=== PATIENT | female | born 1975 | race Caucasian/White ===

== ENCOUNTER 2016-11-27 12:04 | Emergency (ER) | payer SELFPAY ==
[2016-11-27 12:21] VITALS: BP 130/83
--- NOTE | 2016-11-27 13:08 | UC ---
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 has been putting lots of strain on her hands was seen at ED was place on prednisone , she is concern about CTS - History Of Current Complaint Chief Complaint: UCUpperExtremity Stated Complaint: BILATERAL WRIST INJURY (WC) Time Seen by Provider: 11/27/16 12:09 Hx Obtained From: Patient Hx Last Menstrual Period: 11/19/16 Onset/Duration: Gradual Onset, Lasting Days - 4, Still Present Severity Initially: Moderate Severity Currently: Moderate Character Of Pain: Aching, Stiffness - of both hands Aggravating Factor(s): Movement Alleviating: Nothing Associated Signs And Symptoms: Positive: Swelling - both hands and both feet, Weakness, Numbness/Tingling - both hands - Allergies/Home Medications Allergies/Adverse Reactions: Allergies Allergy/AdvReac Type Severity Reaction Status Date / Time No Known Allergies Allergy Verified 11/27/16 12:21 Home Medications: Home Medications Loratadine [Claritin 10 MG CAP] 1 tab PO DAILY 11/27/16 [History Confirmed 11/27] PMH/Surg Hx/FS Hx/Imm Hx Previously Healthy: Yes - Surgical History Surgical History: None - Family History Known Family History: Negative: Diabetes - Social History Alcohol Use: Rare Substance Use Type: None Smoking Status (MU): Never Smoked Tobacco Review of Systems Constitutional: Negative Skin: Negative Eyes: Negative ENT: Negative Respiratory: Negative Musculoskeletal: Other: - bilateral hands pain and swelling All Other Systems Reviewed And Are Negative: Yes Physical Exam Triage Information Reviewed: Yes Appearance: Well-Appearing, No Pain Distress, Well-Nourished Vital Signs: Initial Vital Signs Temp 97.5 F 11/27/16 12:14 Pulse 60 11/27/16 12:14 Resp 14 11/27/16 12:14 BP 130/83 11/27/16 12:14 Pulse Ox 97 11/27/16 12:14 Vital Signs Reviewed: Yes Eyes: Positive: Conjunctiva Clear ENT: Positive: Normal ENT inspection, Hearing grossly normal, Pharynx normal Neck: Positive: Supple, Nontender, No Lymphadenopathy Respiratory: Positive: Chest non-tender, Lungs clear, Normal breath sounds Cardiovascular: Positive: RRR, No Murmur, Pulses Normal Abdominal Exam: Normal Musculoskeletal: Positive: Other: - edema bilateral hands, decrease rom , no tenderness, decrease strength Hand/Wrist Course/Dx - Differential Dx/Diagnosis Provider Diagnoses: parasthesia hands. peripheral edema Discharge - Discharge Plan Condition: Stable Disposition: HOME Prescriptions: HYDROcodone/ACETAMIN 5-325 MG* [[place] 5-325 TAB*] 1 tab PO Q6H PRN #15 tab MDD 4 PRN Reason: Pain Patient Education Materials: Edema (ED) Referrals: No Primary Care Phys,NOPCP [Primary Care Provider] - 7 Days Additional Instructions: edema of upper and lower ext. causing the numbness of the hands cont. with rest , ice, cont. with prednisone , will check cbc, cmp , tsh , call the office tomorrow for the results if all the blood work is normal, you should cont. with rest , antiinflammatories and your sx will improve as soon the swelling is gone
[2016-11-27 18:55] LABS: Hematocrit 35 % (35-47); Hemoglobin 11.6 g/dl (12.0-16.0); Mean Corpuscular HGB Conc 33 g/dl (31-36); Mean Corpuscular Hemoglobin 29 pg (27-31); Mean Corpuscular Volume 87 fL (80-97); Mean Platelet Volume 9 um3 (7.4-10.4); Red Blood Count 3.99 10^6/ul (4.0-5.4); Red Cell Distribution Width 13 % (10.5-15); White Blood Count 9.1 10^3/ul (3.5-10.8)
[2016-11-27 19:17] LABS: TSH (Thyroid Stimulating Horm) 0.49 mcIU/mL (0.34-5.60)
[2016-11-27 20:01] LABS: Albumin 3.8 g/dL (3.2-5.2); Calcium 8.9 mg/dL (8.6-10.3); EGFR African American 132.2 (>60); EGFR Non-African American 102.8 (>60); Globulin 2.6 g/dL (2-4); Potassium 4.1 mmol/L (3.5-5.0); Total Bilirubin 0.4 mg/dL (0.2-1.0); Total Protein 6.4 g/dL (6.4-8.9)
== END 2016-11-27 13:10 | disposition home or self-care (01) ==
LOC: UCCORT 12:04
DX: R20.2 Paresthesia of skin (principal); R60.0 Localized edema
CPT/HCPCS: 36415; 80053; 84443; 85027; 99211; G0463

== ENCOUNTER 2016-12-03 16:01 | Emergency (ER) | payer SELFPAY ==
[2016-12-03 16:11] VITALS: BP 134/76
--- NOTE | 2016-12-03 16:24 | UC ---
Hand/Wrist HPI - HPI Summary HPI Summary: complaint of wrist pain that started approx 8 days ago went to ED last saturday- given prednisone for carpal tunnel syndrome seen here on 11/27/16- swelling in her hands has subsided in the last 2-3 days still has 3-4 days of prednisone left constant aching pain when using her hands she gets a shooting pain into her shoulders fingers feel numb at times wearing wrist support at night with relief denies neck and back pain - History Of Current Complaint Chief Complaint: UCUpperExtremity Stated Complaint: RE-CH BILAT WRIST (WC) Time Seen by Provider: 12/03/16 16:15 Hx Obtained From: Patient Hx Last Menstrual Period: 11/19/16 - Allergies/Home Medications Allergies/Adverse Reactions: Allergies Allergy/AdvReac Type Severity Reaction Status Date / Time No Known Allergies Allergy Verified 12/03/16 16:11 Home Medications: Home Medications Acetaminophen [Acetaminophen Extra Stren] 1,000 mg PO Q4H PRN 12/03/16 [History Confirmed 12/03/16] PMH/Surg Hx/FS Hx/Imm Hx Previously Healthy: Yes - Surgical History Surgical History: None - Family History Known Family History: Negative: Cardiac Disease, Hypertension, Diabetes - Social History Occupation: Employed Full-time Lives: With Family Alcohol Use: Rare Substance Use Type: None Smoking Status (MU): Never Smoked Tobacco Review of Systems Constitutional: Negative Skin: Negative Eyes: Negative ENT: Negative Respiratory: Negative Cardiovascular: Negative Gastrointestinal: Negative Genitourinary: Negative Motor: Negative Neurovascular: Negative Musculoskeletal: Other: - bilateral wrist pain Neurological: Weakness, Numbness Psychological: Negative All Other Systems Reviewed And Are Negative: Yes Physical Exam Triage Information Reviewed: Yes Appearance: No Pain Distress, Well-Nourished Vital Signs: Initial Vital Signs Temp 98.6 F 12/03/16 16:06 Pulse 90 12/03/16 16:06 Resp 16 12/03/16 16:06 BP 134/76 12/03/16 16:06 Pulse Ox 99 12/03/16 16:06 Vital Signs Reviewed: Yes Eyes: Positive: Conjunctiva Clear ENT: Positive: Pharynx normal, TMs normal Neck: Positive: No Lymphadenopathy Respiratory: Positive: Lungs clear, Normal breath sounds, No respiratory distress Cardiovascular: Positive: RRR, No Murmur Abdomen Description: Positive: Nontender, Soft Bowel Sounds: Positive: Present Musculoskeletal: Positive: No Edema, Other: - postive Tinel and Phalen's sign no edema in hands Neurological: Positive: Alert Psychological Exam: Normal Hand/Wrist Course/Dx - Course Course Of Treatment: exam completed. will send to ortho and PT for further evaluation and treatment. will return to PCP if edema returns - Differential Dx/Diagnosis Differential Diagnosis/HQI/PQRI: Carpal Tunnel Syndrome, Sprain, Strain, Tendonitis Provider Diagnoses: carpal tunnel syndrome Discharge - Discharge Plan Condition: Stable Disposition: HOME Prescriptions: HYDROcodone/ACETAMIN 5-325 MG* [[place] 5-325 TAB*] 1 tab PO Q4H PRN #12 tab MDD 6 PRN Reason: Pain Patient Education Materials: Tendinitis (ED) Referrals: Patrick Jensen PA [Primary Care Provider] - Ej Juarez MD [Medical Doctor] - Additional Instructions: continue prednisone as directed continue to use wrist splints, ice and rest please call hazardous material specialist and physical therapy for further evaluation If you have any swelling in your ankles please call your primary care provider for followup Please review your discharge instructions. If your symptoms do not improve please call your primary care provider or return to urgent care. Your blood pressure is pre-hypertensive reading. Please contact your primary care provider within 1 day -4 weeks for further evaluation
== END 2016-12-03 16:45 | disposition home or self-care (01) ==
LOC: UCCORT 16:01
DX: G56.03 Carpal tunnel syndrome, bilateral upper limbs (principal)
CPT/HCPCS: 99212; G0463

== ENCOUNTER 2017-04-25 11:30 | Day surgery (SDC) | payer OTHER ==
[~2017-04-25 11:30] MED LIST: Buffered Lidocaine 0.9% SYRIN* 5 ML/SYR SYRINGE INTRADERM ONE
[2017-04-25] MEDS ORDERED: Midazolam* 1 MG/ML 5 ML VIAL (5 MG) ONE (12:52)
[2017-04-25] MEDS ORDERED: fentaNYL* 50 MCG/ML 2 ML VIAL (100 MCG VIAL) ONE (12:52)
[2017-04-25] MEDS ORDERED: Bupivacaine 0.25% SDV* 30 ML ONE (14:19)
[2017-04-25] MEDS ORDERED: Propofol* 10 MG/ML 20 ML BTL IV PUSH ONE (15:08)
[2017-04-25] MEDS ORDERED: Ondansetron INJ* 2 MG/ML VIAL IV PRN (15:22)
[2017-04-25 15:55] VITALS: BP 137/77
--- NOTE | 2017-04-26 05:34 | OP ---
DATE OF OPERATION: 04/25/17 [facility] DATE OF : 77 SURGEON: Hermes Charles MD PAVING BED MAKER: None. ANESTHESIOLOGIST: Johana Coleman MD ANESTHESIA: Local MAC. PRE-OP DIAGNOSIS: Left carpal tunnel syndrome. POST-OP DIAGNOSIS: Left carpal tunnel syndrome. OPERATIVE PROCEDURE: Left open carpal tunnel release. INDICATIONS: Loraine had progressive symptoms. She has it bilaterally. She had wanted to do the left side first. We talked about risks and benefits. ESTIMATED BLOOD LOSS: 2 mL. COMPLICATIONS: None. FINDINGS: As expected. DESCRIPTION OF PROCEDURE: Loraine was seen in the preoperative holding area. We came back to the operating room where we had the time-out and I infiltrated the operative area with 0.25% plain Marcaine. The arm was then prepped and draped in the usual fashion. A time-out was performed. The arm was exsanguinated and the tourniquet inflated to 250 mmHg. A 2- to 3- cm incision was made longitudinally in the standard location for an open carpal tunnel release. Dissection was carried down and the palmar fascia was incised. The transverse carpal ligament was then released off the radial aspect of the hook of the hamate. The release was continued proximally and distally with the tenotomy scissors under direct visualization. Once the nerve was completely decompressed, I irrigated out the wound. Skin was closed with 3-0 PDS suture. The wound was dressed with Xeroform, 4x4's, sterile Webril, and an Rafael bandage. She was then woken up and taken to the recovery room in stable condition. [id number]/[facility] #: [id number] [facility]
== END 2017-04-25 16:35 | disposition home or self-care (01) ==
LOC: OREAST 11:30
PROVIDERS: ATTEND Orthopaedic Surgery Hand Surgery
DX: G56.02 Carpal tunnel syndrome, left upper limb (principal); J45.990 Exercise induced bronchospasm; F17.200 Nicotine dependence, unspecified, uncomplicated
CPT/HCPCS: 81025; J2250; J2704; J3010

== ENCOUNTER 2018-08-26 13:15 | Emergency (ER) | payer OTHER ==
[2018-08-26 14:08] VITALS: BP 142/83
--- NOTE | 2018-08-26 15:03 | UC ---
UC General HPI - HPI Summary HPI Summary: PT C/O A HEADACHE, SORE THROAT, EAR ACHES, BODYACHES AND NAUSEA WITH VOMITING X1. ONSET YESTERDAY. COWORKERS WITH SAME. NO DIARRHEA. - History of Current Complaint Chief Complaint: UCGeneralIllness Stated Complaint: VOMITTING Time Seen by Provider: 08/26/18 14:54 Hx Obtained From: Patient Hx Last Menstrual Period: 08/11/18 Pain Intensity: 3 Associated Signs & Symptoms: Negative: Abdominal Pain, Chest Pain, SOB - Allergy/Home Medications Allergies/Adverse Reactions: Allergies Allergy/AdvReac Type Severity Reaction Status Date / Time No Known Allergies Allergy Verified 08/26/18 14:03 Home Medications: Home Medications Acetaminophen [Acetaminophen Extra Strength] 1,000 mg PO Q6H PRN 08/26/18 [ History Confirmed 08/26/18] Ascorbic Acid TAB* [Vitamin C TAB*] 1,000 mg PO DAILY 08/26/18 [History Confirmed 08/26/18] Cetirizine* [ZyrTEC 10 MG TAB*] 10 mg PO DAILY 08/26/18 [History Confirmed 08/26] LORazepam TAB(*) [Ativan 0.5 MG TAB (*)] 0.5 mg PO TID PRN 08/26/18 [History Confirmed 08/26/18] Norethindrone (NF) [Yady (NF)] 0.35 mg PO DAILY 08/26/18 [History Confirmed 08/26/18] PMH/Surg Hx/FS Hx/Imm Hx Psychological History: Anxiety - Surgical History Surgical History: Yes Surgery Procedure, Year, and Place: wisdom teeth removed - Family History Known Family History: Negative: Cardiac Disease, Hypertension, Diabetes - Social History Occupation: Employed Full-time Alcohol Use: Occasionally Substance Use Type: None Smoking Status (MU): Never Smoked Tobacco Review of Systems All Other Systems Reviewed And Are Negative: Yes Constitutional: Positive: Fever ENT: Positive: Sore Throat, Ear Ache Respiratory: Positive: Cough Gastrointestinal: Positive: Vomiting, Nausea Musculoskeletal: Positive: Myalgia Neurological: Positive: Headache Physical Exam Triage Information Reviewed: Yes Appearance: Well-Appearing Vital Signs: Initial Vital Signs Temp 98.2 F 08/26/18 14:00 Pulse 80 08/26/18 14:00 Resp 18 08/26/18 14:00 BP 142/83 08/26/18 14:00 Pulse Ox 100 08/26/18 14:00 Vital Signs Reviewed: Yes Eyes: Positive: Conjunctiva Clear ENT: Positive: Pharynx normal, TMs normal. Negative: Nasal congestion, Nasal drainage Neck: Positive: Supple, Nontender, No Lymphadenopathy Respiratory: Positive: Lungs clear, Normal breath sounds, No respiratory distress Cardiovascular: Positive: RRR, No Murmur Abdomen Description: Positive: Nontender, No Organomegaly, Soft Bowel Sounds: Positive: Present Musculoskeletal: Positive: ROM Intact Neurological: Positive: Alert Psychological: Positive: Age Appropriate Behavior Skin Exam: Normal Course/Dx - Course Course Of Treatment: rapid flu=negative - Diagnoses Provider Diagnosis: Viral syndrome Discharge - Sign-Out/Discharge Documenting (check all that apply): Patient Departure All imaging exams completed and their final reports reviewed: No Studies - Discharge Plan Condition: Stable Disposition: HOME Patient Education Materials: Viral Syndrome (ED) Forms: *Work Release Referrals: Patrick Jensen PA [Primary Care Provider] - Additional Instructions: FOLLOW UP WITH PRIMARY CARE IF NOT BETTER IN 3-5 DAYS OR SOONER IF WORSE. - Billing Disposition and Condition Condition: STABLE Disposition: Home
[2018-08-26 15:23] LABS: Influenza A Molecular NEGATIVE (Negative); Influenza B Molecular NEGATIVE (Negative)
== END 2018-08-26 15:30 | disposition home or self-care (01) ==
LOC: UCCORT 13:15
DX: B34.9 Viral infection, unspecified (principal); R51 Headache; J02.9 Acute pharyngitis, unspecified; H92.09 Otalgia, unspecified ear; R11.2 Nausea with vomiting, unspecified; F32.9 Major depressive disorder, single episode, unspecified; Z79.899 Other long term (current) drug therapy
CPT/HCPCS: 99211; G0463

== ENCOUNTER 2018-12-20 16:03 | Emergency (ER) | payer OTHER ==
[2018-12-20 16:48] VITALS: BP 149/82
--- NOTE | 2018-12-20 17:17 | UC ---
Lower Extremity/Ankle HPI - HPI Summary HPI Summary: H/O right 5th metatarsal fracture a couple of years ago and recently hit the foot on a table leg. Having worsening pain. - History of Current Complaint Chief Complaint: UCLowerExtremity Stated Complaint: RIGHT FOOT PAIN Time Seen by Provider: 12/20/18 16:51 Hx Obtained From: Patient Hx Last Menstrual Period: December 01 ?: No Onset/Duration: Sudden Onset, Lasting Weeks - 2, Worse Since - onset Severity Initially: Mild Severity Currently: Moderate Pain Intensity: 7 Aggravating Factor(s): Standing, Ambulation Alleviating Factor(s): Rest, Elevation Able to Bear Weight: Yes - Allergies/Home Medications Allergies/Adverse Reactions: Allergies Allergy/AdvReac Type Severity Reaction Status Date / Time No Known Allergies Allergy Verified 12/20/18 16:48 PMH/Surg Hx/FS Hx/Imm Hx Respiratory History: Asthma Psychological History: Anxiety - Surgical History Surgical History: Yes Surgery Procedure, Year, and Place: wisdom teeth removed - Family History Known Family History: Negative: Cardiac Disease, Hypertension, Diabetes - Social History Occupation: Employed Full-time Lives: Alone - with boyfriend Alcohol Use: Rare Substance Use Type: None Smoking Status (MU): Never Smoked Tobacco Have You Smoked in the Last Year: No Review of Systems All Other Systems Reviewed And Are Negative: Yes Musculoskeletal: Positive: Arthralgia - right foot pain Is Patient Immunocompromised?: No Physical Exam Triage Information Reviewed: Yes Appearance: Well-Appearing, Well-Nourished, Pain Distress - with ambulation Vital Signs: Initial Vital Signs Temp 98.3 F 12/20/18 16:42 Pulse 85 12/20/18 16:42 Resp 18 12/20/18 16:42 BP 149/82 12/20/18 16:42 Pulse Ox 100 12/20/18 16:42 Vital Signs Reviewed: Yes Eyes: Positive: Conjunctiva Clear Neck exam: Normal Respiratory Exam: Normal Cardiovascular Exam: Normal Musculoskeletal: Positive: Other: - Tenderness with some swelling over the base of the 5th metatarsal Neurological Exam: Normal Psychological Exam: Normal Skin Exam: Normal Diagnostics - Radiology No standard instances Radiology Interpretation Completed By: Radiologist Summary of Radiographic Findings: Old 5th metatarsal deformity, no change Lower Extremity Course/Dx - Differential Dx/Diagnosis Differential Diagnosis/HQI/PQRI: Contusion, Fracture (Closed), Sprain, Strain Provider Diagnosis: Contusion of right foot Discharge - Sign-Out/Discharge Documenting (check all that apply): Patient Departure All imaging exams completed and their final reports reviewed: Yes - Discharge Plan Condition: Stable Disposition: HOME Prescriptions: HYDROcodone/ACETAMIN 5-325 MG* [[place] 5-325 TAB*] 1 tab PO Q8H PRN #10 tab MDD 3 PRN Reason: Pain - Moderate To Severe Ibuprofen TAB* [Motrin TAB* 600 MG] 600 mg PO Q6H PRN #120 tab PRN Reason: Pain - Mild To Moderate Patient Education Materials: Foot Contusion (ED), Hydrocodone/Acetaminophen ( By mouth) Referrals: Patrick Jensen PA [Primary Care Provider] - Ej Juarez MD [Medical Doctor] - 2 Days (follow up on the foot pain. ? occult fracture vs tensonitis) - Billing Disposition and Condition Condition: STABLE Disposition: Home
== END 2018-12-20 17:41 | disposition home or self-care (01) ==
LOC: UCCORT 16:03
DX: S90.31XA Contusion of right foot, initial encounter (principal); W22.03XA Walked into furniture, initial encounter; Y92.9 Unspecified place or not applicable; Z87.81 Personal history of (healed) traumatic fracture
CPT/HCPCS: 99213; G0463

== ENCOUNTER 2019-01-29 09:16 | Emergency (ER) | payer OTHER ==
--- OUTSIDE RECORDS SUMMARY | 2019-01-29 09:38 | XMS REPORT | Continuity of Care Document ---
:1975 External Reference #:[id number] Author Name David Dey Care Team Providers Name Role Phone Jorge A Jensen RPA Primary Care Physician Unavailable Payers Date Identification Numbers Payment Provider Subscriber Policy Number: [id number] Bruce/[employer] Loraine Toure PayID: [id number] [address] [address] [place] [address] Onset: 2016 Policy Number: [id number] [employer] Loraine Toure Group Number: [id number] [address] [address] Group Name: [id number] [place] [address] PayID: [id number] Expires: 2010 PayID: [id number] Self Pay Loraine Toure Problems Active Problems Provider Date Lipoma of skin Hermes Charles MD Onset: 04/16/2017 Family History Date Family Member(s) Observation Comments General Hypertension Social History Type Date Description Comments Sex Unknown Marital Status Single Lives With Family Occupation Currently Working ETOH Use Rarely consumes alcohol Tobacco Use Start: Unknown Patient has never smoked Recreational Drug Use Denies Drug Use Smoking Status Reviewed: 01/07/19 Patient has never smoked Exercise Type/Frequency Exercises regularly Allergies, Adverse Reactions, Alerts Description No Known Drug Allergies Medications Active Medications SIG Qnty Indications Ordering Date Provider Ibuprofen 1 tab by mouth up 80tabs S92.351K Santana Jin, 12/24/2018 800mg Tablets to 4 times daily MD as needed Acetaminophen Extra 2 tabs 3 times Unknown Strength daily as needed 500mg Tablets for pain Portilloobel po qday Mary Conley 0.35mg Tablets Mariem F.N.P. Ibuprofen take 1 tablet by Unknown 600mg Tablets mouth every 6 hours if needed for Mild To Moderate Pain Lorazepam take 1 tablet by Unknown 0.5mg Tablets mouth three times a day if needed for anxiety History Medications Tramadol 1-2 tab by 30tacolton Mirza 04/25/2017 - Hydrochloride/Acetaminophen mouth every MD Melvin 12/22/2018 37.5-325mg Tablets 4-6 hours as needed Hydrocodone-Acetaminophen 1 tab by mouth 10tabs Hermes 04/25/2017 - 5-325mg Tablets every 6 hours MD Melvin 12/22/2018 as needed for pain Vicodin take 1 by Unknown - 5-300mg Tablets mouth every 6 01/28/2017 hours as needed Prednisone po qday, last Unknown - 10mg Tablets day 12/07/16 02/04/2017 Hydrocodone-Acetaminophen Take 1 Tab By Unknown - 5-325mg Tablets Mouth Every 8 01/06/2019 Hours as Needed For Moderate To Severe Pain Vital Signs Date Vital Result Comment 01/07/2019 11:30am Height 68 inches 5'8" Heart Rate 72 /min BP Systolic Sitting 158 mmHg BP Diastolic Sitting 92 mmHg Respiratory Rate 12 /min no resp difficulties Pain Level 3 12/24/2018 3:34pm Height 68 inches 5'8" Weight 180.00 lb Heart Rate 76 /min BP Systolic Sitting 130 mmHg BP Diastolic Sitting 80 mmHg Respiratory Rate 12 /min Pain Level 6 BMI (Body Mass Index) 27.4 kg/m2 12/23/2018 12:57pm Heart Rate 81 /min BP Systolic Sitting 138 mmHg BP Diastolic Sitting 98 mmHg Respiratory Rate 16 /min Pain Level 7 O2 % BldC Oximetry 98 % 05/06/2017 10:35am Height 68 inches 5'8" Weight 180.00 lb Respiratory Rate 12 /min Pain Level 1 BMI (Body Mass Index) 27.4 kg/m2 04/16/2017 9:03am Height 68 inches 5'8" Weight 180.00 lb Heart Rate 72 /min BP Systolic Sitting 138 mmHg BP Diastolic Sitting 84 mmHg Respiratory Rate 17 /min Body Temperature 98.7 F Pain Level 3 BMI (Body Mass Index) 27.4 kg/m2 02/05/2017 11:10am Height 68 inches 5'8" Weight 180.00 lb Heart Rate 72 /min BP Systolic Sitting 132 mmHg BP Diastolic Sitting 78 mmHg Respiratory Rate 16 /min Pain Level 0 BMI (Body Mass Index) 27.4 kg/m2 12/07/2016 2:38pm Height 68 inches 5'8" Weight 180.00 lb Heart Rate 74 /min BP Systolic 148 mmHg BP Diastolic 82 mmHg Respiratory Rate 16 /min Pain Level 8 BMI (Body Mass Index) 27.4 kg/m2 Procedures Date Code Description Status 04/25/2017 52012 Carpal Tunnel Release Completed 04/25/2017 70566 Carpal Tunnel Release Completed 04/25/2017 75502 Carpal Tunnel Release Completed 01/31/2017 70220 Nerve Conduction, Sensory Completed 01/31/2017 14088 Nerve Conduction, Motor W/O F-Wave Study Completed Encounters Type Date Location Provider Dx Diagnosis Office Visit 12/24/2018 Orthopedic Hermes Gilliland, S92.351K Disp fx of 5th 2:30p [facility], subs for fx w nonunion Office Visit 12/23/2018 Orthopedic Ej Juarez, S92.351K Disp fx of 5th 1:00p [facility], subs for fx w nonunion Office Visit 04/16/2017 Orthopedic Hermes Charles, D17.1 Benign lipomatous 9:00a [facility] neoplasm of skin, [place] subcu of trunk Office Visit 02/05/2017 Orthopedic Hermes Charles, G56.03 Carpal tunnel 11:15a [facility] AT syndromeDerian bilateral upper limbs Office Visit 12/07/2016 Orthopedic Ej Juarez, G56.01 Carpal tunnel 2:30p [facility] AT syndrome, right [place] upper limb G56.01 Carpal tunnel syndrome, right upper limb G56.02 Carpal tunnel syndrome, left upper limb G56.02 Carpal tunnel syndrome, left upper limb 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 at [facility] Hgpbzzsa33/24/2019 - Hermes Gilliland M.D.S92.351K Displaced fracture of fifth metatarsal bone, right foot, subFollow up:Follow up: 4 weeks
[2019-01-29 09:44] VITALS: BP 139/86
--- NOTE | 2019-01-29 10:05 | UC ---
Lower Extremity/Ankle HPI - HPI Summary HPI Summary: Injury to right foot fifth digit last night when she bumped into a coffee table. She is currently seeing Dr. Gilliland for management of an acute on chronic injury of the right fifth metatarsal. Using ibuprofen 600mg for pain, declines use of toradol. - History of Current Complaint Chief Complaint: UCLowerExtremity Stated Complaint: RT PINKY TOE INJURY Time Seen by Provider: 01/29/19 09:37 Hx Obtained From: Patient Hx Last Menstrual Period: current ?: No - on northendrone Onset/Duration: Sudden Onset Severity Initially: Moderate Severity Currently: Moderate Pain Intensity: 8 Aggravating Factor(s): Ambulation Alleviating Factor(s): Rest, OTC Meds Able to Bear Weight: Yes - Risk Factors Gout Risk Factors: Age Over 40 DVT Risk Factors: Negative Septic Arthritis Risk Factor: Negative - Allergies/Home Medications Allergies/Adverse Reactions: Allergies Allergy/AdvReac Type Severity Reaction Status Date / Time No Known Allergies Allergy Verified 01/29/19 09:40 PMH/Surg Hx/FS Hx/Imm Hx Previously Healthy: Yes Psychological History: Anxiety - Surgical History Surgical History: Yes Surgery Procedure, Year, and Place: wisdom teeth removed. left wrist CTS - Family History Known Family History: Negative: Cardiac Disease, Hypertension, Diabetes - Social History Occupation: Employed Full-time Lives: With Family Alcohol Use: Occasionally Substance Use Type: None Smoking Status (MU): Never Smoked Tobacco Have You Smoked in the Last Year: No Review of Systems All Other Systems Reviewed And Are Negative: Yes Constitutional: Positive: Negative Skin: Positive: Other - sun induced urticaria last week, has continued itching scar left forearm. Musculoskeletal: Positive: Arthralgia Is Patient Immunocompromised?: No Physical Exam Triage Information Reviewed: Yes Appearance: Well-Appearing, No Pain Distress Vital Signs: Initial Vital Signs Temp 97.7 F 01/29/19 09:37 Pulse 72 01/29/19 09:37 Resp 15 01/29/19 09:37 BP 139/86 01/29/19 09:37 Pulse Ox 100 01/29/19 09:37 ENT: Positive: Pharynx normal Neck: Positive: Supple, Nontender, No Lymphadenopathy Respiratory: Positive: Lungs clear, Normal breath sounds Cardiovascular: Positive: RRR, No Murmur Musculoskeletal: Positive: ROM Limited @ - left fifth MCP joint, no deformity. TTP distal digit with mild swelling. Neurological Exam: Normal Psychological Exam: Normal Skin Exam: Normal Diagnostics - Radiology No standard instances Radiology Interpretation Completed By: Radiologist Summary of Radiographic Findings: No acute fracture of the right fifth digit, chronic fifth metatarsal fracture. Lower Extremity Course/Dx - Course Course Of Treatment: Continue CAM walker use, ibuprofen 600mg up to 4 times per day. - Differential Dx/Diagnosis Differential Diagnosis/HQI/PQRI: Fracture (Closed), Sprain, Strain, Other - contusion Provider Diagnosis: Contusion of fifth toe of right foot Discharge - Sign-Out/Discharge Documenting (check all that apply): Patient Departure All imaging exams completed and their final reports reviewed: Yes - Discharge Plan Condition: Stable Disposition: HOME Patient Education Materials: Contusion in Adults (ED) Forms: *Work Release Referrals: Patrick Jensen PA [Primary Care Provider] - - Billing Disposition and Condition Condition: STABLE Disposition: Home
== END 2019-01-29 10:57 | disposition home or self-care (01) ==
LOC: UCCORT 09:16
DX: S90.121A Contusion of right lesser toe(s) without damage to nail, initial encounter (principal); W22.03XA Walked into furniture, initial encounter; Y93.9 Activity, unspecified; Y92.9 Unspecified place or not applicable
CPT/HCPCS: 99212; G0463